=== PATIENT | female | born 1975 | race Caucasian/White ===

== ENCOUNTER 2020-07-31 06:59 | Emergency (ER) | payer OTHER ==
[2020-07-31 07:12] VITALS: BP 154/99; O2SAT 98
[2020-07-31] MEDS ORDERED: MORPHINE SULFATE 2 MG INJ IV ONE (07:24)
[2020-07-31] MEDS ORDERED: MORPHINE SULFATE 2 MG INJ ONE (07:26)
[2020-07-31] MEDS ORDERED: Sodium Chloride 0.9% 1000 ML 1,000 ML ONE (07:26)
[2020-07-31] MEDS ORDERED: Sodium Chloride 0.9% 1000 ML 1,000 ML IV SCH (07:30)
[2020-07-31] MEDS ORDERED: TYLENOL 325 MG PO ONE (07:43)
--- NOTE | 2020-07-31 07:43 | ERPHSYRPT ---
- History of Present Illness Source: patient Exam Limitations: no limitations Patient Subjective Stated Complaint: fall Triage Nursing Assessment: pt to ED c/o fall and L side pain that radiates from L shoulder to L hip. reports most pain in LUQ and bottom ribs. reports this am she was walking her dog and got pulled by dog. fell and hit rocks with L side. rates 9/10 pain. reports nausea onset right after fall but no emesis. Timing/Duration: today Severity: moderate Modifying Factors: Improves With: movement Associated Symptoms: nausea, No vomiting, No abdominal pain, No shortness of breath, No heartburn, No diaphoresis, No cough, No chills, No chest pain, No fever, No headaches, No loss of appetite, No malaise, No syncope Hx Tetanus, Diphtheria Vaccination/Date Given: Yes Hx Influenza Vaccination/Date Given: No (2011) Hx Pneumococcal Vaccination/Date Given: No (2008) <DAMIEN SHORE - Last Filed: 07/31/20 07:37> <SEBASTIAN CABALLERO - Last Filed: 07/31/20 09:08> - History of Present Illness Time Seen by Provider: 07/31/20 07:15 Physician History: Patient is a 44-year-old female presents to our ED with complaints of pain to her left shoulder left rib left upper quadrant and left hip area. Patient states she was walking her dog this morning. Patient is dog reportedly ran after a cat. Patient fell onto rocks. Injury [place] prior to arrival. Pain described as an ache that is localized. No radiation. Pain reproduced with movement and palpation to the area of involvement. Pain improved with rest. No BHT or LOC. No neck pain. Cervical spine cleared clinically. Patient recalls the entire event in detail. Patient is a registered nurse. Patient presented to our ED because she was concerned for splenic injury. Patient ambulatory. Patient denies back pain. Patient does state that she was mildly nauseous at the time of injury but not so much at this time. She voices no other complaints concerns at this time. (DAMIEN SHORE) Allergies/Adverse Reactions: erythromycin base Allergy (Verified 07/31/20 07:13) Penicillins Allergy (Verified 07/31/20 07:13) acetaminophen [From Vicodin] Adverse Reaction (Mild, Verified 07/31/20 07:13) Itching hydrocodone bitartrate [From Vicodin] Adverse Reaction (Mild, Verified 07/31/20 07:13) Itching Travel Risk - International Travel Have you traveled outside of the country in past 3 weeks: No - Coronavirus Screening Are you exhibiting any of the following symptoms?: No Close contact with a COVID-19 positive Pt in past 14-21 Days: No <DAMIEN SHORE - Last Filed: 07/31/20 07:37> - Review of Systems Constitutional: No Symptoms, No Fever, No Chills Eyes: No Symptoms Ears, Nose, & Throat: No Symptoms Respiratory: No Symptoms, No Cough, No Dyspnea Cardiac: No Symptoms, No Chest Pain, No Edema, No Syncope Abdominal/Gastrointestinal: No Symptoms, No Abdominal Pain, No Nausea, No Vomiting, No Diarrhea Genitourinary Symptoms: No Symptoms, No Dysuria Musculoskeletal: No Symptoms, No Back Pain, No Neck Pain Skin: No Symptoms, No Rash Neurological: No Symptoms, No Dizziness, No Focal Weakness, No Sensory Changes Psychological: No Symptoms Endocrine: No Symptoms Hematologic/Lymphatic: No Symptoms Immunological/Allergic: No Symptoms All Other Systems: Reviewed and Negative <DAMIEN SHORE - Last Filed: 07/31/20 07:37> - Past Medical History Pertinent Past Medical History: Yes Neurological History: Migraines ENT History: No Pertinent History Cardiac History: Hypertension, Other Respiratory History: Asthma Endocrine Medical History: No Pertinent History Musculoskeletal History: Osteoarthritis, Other GI Medical History: GERD History: No Pertinent History Psycho-Social History: No Pertinent History Female Reproductive Disorders: No Pertinent History Other Medical History: osteopenia; hyperlipidemia - Past Surgical History Past Surgical History: Yes Neuro Surgical History: No Pertinent History Cardiac: No Pertinent History Respiratory: No Pertinent History Gastrointestinal: Appendectomy, Cholecystectomy Genitourinary: No Pertinent History Musculoskeletal: No Pertinent History Female Surgical History: Hysterectomy, Tubal Ligation - Social History Smoking Status: Never smoker Exposure to second hand smoke: No Drug Use: none Patient Lives Alone: No - Female History Hx Now: No (hysterectomy) <DAMIEN SHORE - Last Filed: 07/31/20 07:37> - Physical Exam General Appearance: no apparent distress, alert Eye Exam: PERRL/EOMI, eyes nml inspection Ears, Nose, Throat Exam: normal ENT inspection, pharynx normal, moist mucous membranes Neck Exam: normal inspection, non-tender, supple, full range of motion Respiratory Exam: normal breath sounds, lungs clear, No respiratory distress Cardiovascular Exam: regular rate/rhythm, normal heart sounds, normal peripheral pulses Gastrointestinal/Abdomen Exam: soft, normal bowel sounds, tenderness, other (Patient has tenderness to her left upper quadrant and left flank. Negative James sign. Negative Durand Kelly sign.), No mass Back Exam: normal inspection, normal range of motion, No CVA tenderness, No vertebral tenderness Extremity Exam: normal inspection, normal range of motion (Pain to left shoulder upon motion. Otherwise left upper extremity is unaffected. No pain at her elbow forearm hand or wrist. The involved upper extremity is neurovascular intact distally. Compartments are soft. Cap refill less than 2 seconds. No open or draining lesions. No obvious ecchymosis), pelvis stable Neurologic Exam: alert, oriented x 3, cooperative, normal mood/affect, sensation nml, No motor deficits Skin Exam: normal color, warm, dry, No rash Lymphatic Exam: No adenopathy SpO2 Interpretation: normal SpO2: 98 O2 Delivery: Room Air <DAMIEN SHORE - Last Filed: 07/31/20 07:37> - Nursing Vital Signs Nursing Vital Signs: Initial Vital Signs Temperature 98.2 F 07/31/20 07:08 Pulse Rate 79 07/31/20 07:08 Respiratory Rate 18 07/31/20 07:08 Blood Pressure 154/99 07/31/20 07:08 O2 Sat by Pulse Oximetry 98 07/31/20 07:08 Pain Scale Pain Intensity 9 - Course Nursing assessment & vital signs reviewed: Yes <DAMIEN SHORE - Last Filed: 07/31/20 07:37> Ordered Tests: Active Orders 24 hr Category Date Time Status IV Insertion STAT Care 07/31/20 07:21 Active Pulse Oximetry (ED) STAT Care 07/31/20 07:21 Active ABDOMEN AND PELVIS W CONTRAST [CT] Stat Exams 07/31/20 07:23 Completed CHEST 1 VIEW (PORTABLE) Stat Exams 07/31/20 07:24 Completed RIBS UNILATERAL Stat Exams 07/31/20 07:24 Completed SHOULDER Stat Exams 07/31/20 07:39 Completed CBC W DIFF Stat Lab 07/31/20 07:37 Completed CMP Stat Lab 07/31/20 07:37 Completed PROTIME WITH INR Stat Lab 07/31/20 07:37 Completed PTT Stat Lab 07/31/20 07:37 Completed Medication Summary Generic Name Dose Route Start Last Admin Trade Name Gissell PRN Reason Stop Dose Admin Sodium Chloride 1,000 mls @ 100 mls/hr 07/31/20 07:30 07/31/20 07:44 Sodium Chloride 0.9% 1000 Ml IV 08/30/20 07:29 100 mls/hr .Q10H NIKITA Administration Discontinued Medications Generic Name Dose Route Start Last Admin Trade Name Gissell PRN Reason Stop Dose Admin Acetaminophen 975 mg 07/31/20 07:43 07/31/20 07:47 Tylenol 325 Mg PO 07/31/20 07:44 975 mg STAT ONE Administration Acetaminophen Confirm 07/31/20 07:44 Tylenol 325 Mg Administered 07/31/20 07:45 Dose 975 mg .ROUTE .STK-MED ONE Morphine Sulfate 2 mg 07/31/20 07:24 07/31/20 07:44 Morphine Sulfate 2 Mg Inj IV 07/31/20 07:25 Not Given STAT ONE Morphine Sulfate Confirm 07/31/20 07:26 Morphine Sulfate 2 Mg Inj Administered 07/31/20 07:27 Dose 2 mg .ROUTE .STK-MED ONE Lab/Rad Data: Laboratory Result Diagrams 07/31/20 07:37 07/31/20 07:37 Laboratory Results 07/31/20 07/31/20 07/31/20 Range/Units 07:37 07:37 07:37 WBC 5.6 (4.0-10.5) K/mm3 RBC 4.58 (4.1-5.4) M/mm3 Hgb 13.6 (12.0-16.0) gm/dl Hct 42.0 (35-47) % MCV 91.7 (78-100) fl MCH 29.7 (26-32) pg MCHC 32.4 (32-36) g/dl RDW 13.5 (11.5-14.0) % Plt Count 162 (150-450) K/mm3 MPV 11.4 H (7.5-11.0) fl Gran % 60.8 (36.0-66.0) % Eos # (Auto) 0.08 (0-0.5) Absolute Lymphs (auto) 1.77 (1.0-4.6) Absolute Monos (auto) 0.30 (0.0-1.3) Lymphocytes % 31.9 (24.0-44.0) % Monocytes % 5.4 (0.0-12.0) % Eosinophils % 1.4 (0.00-5.0) % Basophils % 0.5 (0.0-0.4) % Absolute Granulocytes 3.37 (1.4-6.9) Basophils # 0.03 (0-0.4) PT 12.3 (9.95-12.35) SECONDS INR 1.09 (0.8-3.0) APTT 28.7 (25.3-37.0) SECONDS Sodium 139 (137-145) mmol/L Potassium 4.3 (3.5-5.1) mmol/L Chloride 105 (98-107) mmol/L Carbon Dioxide 30 (22-30) mmol/L Anion Gap 9.0 (5-15) MEQ/L BUN 19 H (7-17) mg/dL Creatinine 1.01 (0.52-1.04) mg/dL Estimated GFR > 60.0 ML/MIN Glucose 97 (74-106) mg/dL Calcium 8.9 (8.4-10.2) mg/dL Total Bilirubin 0.70 (0.2-1.3) mg/dL AST 21 (14-36) U/L ALT 19 (0-35) U/L Alkaline Phosphatase 83 (38-126) U/L Serum Total Protein 7.2 (6.3-8.2) g/dL Albumin 4.3 (3.5-5.0) g/dL - Progress Progress: improved <DAMIEN SHORE - Last Filed: 07/31/20 07:37> - Progress Counseled pt/family regarding: lab results, diagnosis, need for follow-up, rad results <SEBASTIAN CABALLERO - Last Filed: 07/31/20 09:08> - Progress Progress Note: 07/31/20 07:46 Patient presented at approximately change of shift. Dr. Shore evaluated and ordered labs and imaging studies. Patient endorsed to Dr. Caballero at change of shift. Imaging studies and labs pending. Dr. Caballero will make final disposition. (DAMIEN SHORE) 07/31/20 09:04 Medical decision making: This patient does not want any narcotic medications here. We will give her a dose of Toradol which she is agreeable to. CAT scan of the abdomen pelvis is negative for any acute process Chest x-ray is negative for any acute cardiopulmonary process Left rib x-rays show no acute rib fractures. Left shoulder x-ray is negative for any acute fracture or dislocation. (SEBASTIAN CABALLERO) - Departure Critical Care Time: No <DAMIEN SHORE - Last Filed: 07/31/20 07:37> - Departure Departure Disposition: Home <SEBASTIAN CABALLERO - Last Filed: 07/31/20 09:08> - Departure Clinical Impression: Fall, Contusion Condition: Stable Referrals: YESSICA YOUNG MD [Primary Care Provider] - Additional Instructions: Drink plenty of fluids. Use Tylenol and ibuprofen for pain control. Fill your [place] prescription if needed. Follow-up with your primary care physician for pe rsistent symptoms. Prescriptions: Hydrocodone/APAP 5/325 [[place] 5/325 mg] 1 each PO Q8H PRN PRN #6 tablet MDD 3 PRN Reason: Pain
[2020-07-31] MEDS ORDERED: TYLENOL 325 MG ONE (07:44)
[2020-07-31 07:45] LABS: Absolute Neutrophil Ct (ANC) 3.37 (1.4-6.9); BASOPHIL % 0.5 % (0.0-0.4); Basophil (Absolute #) 0.03 (0-0.4); Eosinophil % 1.4 % (0.00-5.0); Eosinophil (Absolute #) 0.08 (0-0.5); Hemoglobin 13.6 gm/dl (12.0-16.0); Lymphocyte (Absolute #) 1.77 (1.0-4.6); Lymphocytes % 31.9 % (24.0-44.0); Mean Cell Volume 91.7 fl (78-100); Mean Corpuscular Hemoglobin 29.7 pg (26-32); Mean Corpuscular Hgb Concent. 32.4 g/dl (32-36); Mean Platelet Volume 11.4 fl (7.5-11.0); Monocytes % 5.4 % (0.0-12.0); Neutrophil % 60.8 % (36.0-66.0); Platelet Count 162 K/mm3 (150-450); Red Blood Count 4.58 M/mm3 (4.1-5.4); Red Cell Distribution Width 13.5 % (11.5-14.0); White Blood Count 5.6 K/mm3 (4.0-10.5)
[2020-07-31 07:52] LABS: INR 1.09 (0.8-3.0); PROTIME 12.3 SECONDS (9.95-12.35)
[2020-07-31 07:55] LABS: PTT 28.7 SECONDS (25.3-37.0)
[2020-07-31 08:04] VITALS: PULSE 69
[2020-07-31 08:18] LABS: ALBUMIN 4.3 g/dL (3.5-5.0); ALKALINE PHOSPHATASE 83 U/L (38-126); BLOOD UREA NITROGEN 19 mg/dL (7-17); CHLORIDE 105 mmol/L (98-107); Calcium 8.9 mg/dL (8.4-10.2); Carbon Dioxide 30 mmol/L (22-30); Creatinine 1 1.01 mg/dL (0.52-1.04); EST GLOMERULAR FILTRATION RATE > 60.0 ML/MIN; Glucose 97 mg/dL (74-106); Potassium 4.3 mmol/L (3.5-5.1); SGOT/AST 21 U/L (14-36); SGPT/ALT 19 U/L (0-35); SODIUM 139 mmol/L (137-145); Total Protein 7.2 g/dL (6.3-8.2)
--- NOTE | 2020-07-31 08:52 | XRAY ---
Indication: Pain following fall. Multiple contiguous axial images obtained through the abdomen and pelvis using 80 cc Isovue 370 contrast. Comparison: CT renal stone study September 23, 2012. Lung bases demonstrates mild dependent atelectasis, lingula subsegmental atelectasis/scarring, and tiny left lower lobe calcified granuloma. No infiltrate, effusion, or pneumothorax. Heart is not enlarged. Noncontrasted stomach and bowel loops appear nonobstructed. Cholecystectomy, hysterectomy, and appendectomy reported. No free fluid/air. Remaining liver, pancreas, spleen, adrenal glands, kidneys, ureters, bladder, and aorta appear normal in CT appearance and attenuation. No pathologic retroperitoneal lymphadenopathy. Osseous structures intact. No ventral or inguinal hernias. Impression: Negative CT abdomen/pelvis with contrast exam.
--- NOTE | 2020-07-31 08:56 | XRAY ---
Indication: Chest and shoulder pain following fall. Comparison: March 26, 2013. Portable chest demonstrates new lingula subsegmental atelectasis/scarring. Remaining heart, lungs, and bony thorax normal.
--- NOTE | 2020-07-31 08:56 | XRAY ---
Indication: Pain following fall. Comparison: None 3 view left shoulder obtained. No bony, articular, or soft tissue abnormalities.
--- NOTE | 2020-07-31 08:56 | XRAY ---
Indication: Pain following fall. Comparison: None 2 view left ribs demonstrates lingula subsegmental atelectasis/scarring. No other bony, articular, or soft tissue abnormalities.
[2020-07-31] MEDS ORDERED: TORAdol 30 mg Injection IV ONE (09:08)
[2020-07-31] MEDS ORDERED: TORAdol 30 mg Injection ONE (09:14)
== END 2020-07-31 09:40 | disposition home or self-care (01) ==
LOC: ED 06:59
DX: M25.512 Pain in left shoulder (principal); R10.12 Left upper quadrant pain; M25.552 Pain in left hip; I10 Essential (primary) hypertension; W18.31XA Fall on same level due to stepping on an object, initial encounter; Y93.K1 Activity, walking an animal; T14.8XXA Other injury of unspecified body region, initial encounter
CPT/HCPCS: 36000; 36415; 71045; 71100; 73030; 74177; 80053; 85025; 85610; 85730; 94760; 96360; 96361; 96374; 99284; J1885; J2270; A9270-GY